=== PATIENT | female | born 1975 | race Caucasian/White ===

== ENCOUNTER → 2018-04-17 | Day surgery (SDC) | payer BC ==
[~2018-04-17] MED LIST: CHOL500016 PO; IV RINGERS,LACTATED 1000ML 1,000 ML IV SCH; LIDOCAINE 1% PF 2 ML VIAL. ID PRN; LIDOCAINE 1% PF 2 ML VIAL. ONE; MIDAZOLAM HCL/PF 2 MG/2 ML VIAL. IV PRN; OMEP20TA8 PO; PROPOFOL 20 ML IV ONE; THYR60TA PO; fentaNYL PF VIAL 100 MCG/2 ML VIAL IV PRN
[2018-04-17 12:00] LABS: U PREG PATIENT NEGATIVE (NEG)
[2018-04-17 13:30] VITALS: BP 104/63
--- NOTE | 2018-04-18 14:10 | PATHOLOGY ---
[facility] Accession Number: [id number] . 01 Material submitted: . DISTAL ESOPHAGUS BIOPSY . 01 Clinical history: . GERD, rule out Nugent's . 02 Diagnosis: Esophageal biopsies, distal esophagus: - Segments of hyperplastic squamous esophageal mucosa showing focal acute inflammation, consistent with reflux esophagitis. (JPM:intermediate project manager; 04/18/2018) MBR/04/18/2018 . 02 Comment: Sections of the distal esophageal biopsy reveal segments of focally tangentially oriented hyperplastic squamous esophageal mucosa showing focal acute inflammation. The findings are consistent with reflux esophagitis. There is no evidence of Nugent's change, dysplasia, or malignancy. (JPM:intermediate project manager; 04/18/2018) . 02 Electronically signed: . Sony Graf MD, Pathologist NPI- [id number] . 01 Gross description: . Received in formalin labeled "[place], distal esophagus BX," are 4 segments of fuentes soft tissue measuring 1.4 x 1.2 x 0.1 cm in aggregate dimensions and ranging from 0.4 to 0.5 cm in maximum dimension. The specimen is submitted entirely in cassette A1. (TSD; 04/17/2018) TOB/TOB . 02 Pathologist provided ICD-10: K21.0 . 02 CPT . 532658 Specimen Comment: A courtesy copy of this report has been sent to Specimen Comment: [phone]. Specimen Comment: Report sent to Performed at: 01 [facility] [address], [place] [id number] MD Froilan Slaughter MD Phone: [phone] Performed at: 02 [facility] [place] [id number] MD Sony Graf MD Phone: [phone]
== END ==
LOC: SURG 11:33
PROVIDERS: ATTEND Internal Medicine Gastroenterology
DX: K21.0 Gastro-esophageal reflux disease with esophagitis (principal); K31.7 Polyp of stomach and duodenum; E03.9 Hypothyroidism, unspecified; Z82.49 Family history of ischemic heart disease and other diseases of the circulatory system; Z88.8 Allergy status to other drugs, medicaments and biological substances; Z88.0 Allergy status to penicillin; Z79.899 Other long term (current) drug therapy
CPT/HCPCS: 43239; 81025; 88305; J2704